=== PATIENT | male | born 1960 | race Caucasian/White ===

== ENCOUNTER 2018-03-21 19:50 | Emergency (ER) | payer BC ==
[2018-03-21 21:34] VITALS: BP 142/74
--- NOTE | 2018-03-21 22:32 | EDM.PDOC ---
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(s) - Related Data Allergies Allergy/AdvReac Type Severity Reaction Status Date / Time No Known Allergies Allergy Verified 03/21/18 21:34 Home Meds: Home Meds Escitalopram Oxalate 10 mg PO DAILY 03/31/16 [History] Levothyroxine Sodium 150 mcg PO DAILY 03/31/16 [History] Potassium Citrate 20 meq PO DAILY 03/31/16 [History] Rosuvastatin Calcium [Crestor] 10 mg PO DAILY 03/31/16 [History] Past Medical History HEENT History: Reports: Hard of Hearing Cardiovascular History: Reports: High Cholesterol Genitourinary History: Reports: Renal Calculus Psychiatric History: Reports: Anxiety Endocrine/Metabolic History: Reports: Hyperthyroidism - Past Surgical History GI Surgical History: Reports: Hernia Repair/Other Social & Family History - Tobacco Use Smoking Status *Q: Unknown Ever Smoked - Caffeine Use Caffeine Use: Reports: Coffee - Recreational Drug Use Recreational Drug Use: No Review of Systems - Review of Systems Review Of Systems: ROS reveals no pertinent complaints other than HPI. ED EXAM, GENERAL - Physical Exam Exam: See Below Exam Limited By: No Limitations General Appearance: Alert, No Apparent Distress Eye Exam: Bilateral Eye: EOMI Ears: Normal External Exam Nose: Normal Inspection Throat/Mouth: Normal Inspection Head: Atraumatic, Normocephalic Neck: Normal Inspection Respiratory/Chest: No Respiratory Distress, Lungs Clear Cardiovascular: Normal Peripheral Pulses, Regular Rate, Rhythm GI/Abdominal: Normal Bowel Sounds Extremities: Normal Range of Motion, Leg Pain (left anterior hogan tender) Neurological: Alert, Oriented, Normal Cognition Skin Exam: Wound/Incision (7x2 cm scrape to left anterior hogan. scant surrounding erythems. Upper mid portion dark crust, lower small amount white green drainage. ) Course - Vital Signs Last Recorded V/S: Last Vital Signs Temp 98.2 F 03/21/18 21:33 Pulse 54 L 06/27/18 21:33 Resp 18 03/21/18 21:33 BP 142/74 H 03/21/18 21:33 Pulse Ox 94 L 03/21/18 21:33 - Orders/Labs/Meds Orders: Active Orders 24 hr Category Date Time Status CULTURE BLOOD [BC] Stat Lab 03/21/18 22:41 Results CULTURE BLOOD [BC] Stat Lab 03/21/18 22:46 Received CULTURE WOUND [RM] Stat Lab 03/21/18 22:41 Ordered Blood Culture x2 Reflex Set [OM.PC] Stat Oth 03/21/18 22:18 Ordered Labs: Laboratory Tests 03/21/18 03/21/18 03/21/18 Range/Units 22:41 22:41 22:41 WBC 8.8 (5.0-10.0) 10^3/uL RBC 4.48 L (4.6-6.2) 10^6/uL Hgb 14.8 (14.0-18.0) g/dL Hct 42.4 (40.0-54.0) % MCV 94.6 (80-100) fL MCH 33.0 (27.0-34.0) pg MCHC 34.9 (33.0-35.0) g/dL Plt Count 176 (150-450) 10^3/uL Neut % (Auto) 58.0 (42.2-75.2) % Lymph % (Auto) 31.1 (20.5-50.1) % [place] % (Auto) 8.7 H (2-8) % Eos % (Auto) 1.9 (1.0-3.0) % Baso % (Auto) 0.3 (0.0-1.0) % Sodium 134 L (135-145) mmol/L Potassium 4.5 (3.6-5.0) mmol/L Chloride 102 (101-111) mmol/L Carbon Dioxide 24.0 (21.0-31.0) mmol/L Anion Gap 12.5 BUN 14 (7-18) mg/dL Creatinine 1.0 (0.6-1.3) mg/dL Est Cr Clr Drug Dosing 93.22 mL/min Estimated GFR (MDRD) > 60 BUN/Creatinine Ratio 14.00 Glucose 77 (74-105) mg/dL Lactic Acid 1.6 (0.5-2.2) mmol/L Calcium 8.5 (8.4-10.2) mg/dl Total Bilirubin 2.3 H (0.2-1.0) mg/dL AST 33 (10-42) IU/L ALT 26 (10-60) IU/L Alkaline Phosphatase 53 (42-121) IU/L Total Protein 6.8 (6.7-8.2) g/dl Albumin 4.1 (3.2-5.5) g/dl Globulin 2.7 Albumin/Globulin Ratio 1.52 Meds: Medications Discontinued Medications Generic Name Dose Route Start Last Admin Trade Name Steveq PRN Reason Stop Dose Admin Cephalexin 500 mg 03/21/18 23:26 03/21/18 23:33 Keflex PO 03/21/18 23:27 500 mg ONETIME ONE Administration Trimethoprim/Sulfamethoxazole 1 tab 03/21/18 23:26 03/21/18 23:33 Septra Ds PO 03/21/18 23:27 1 tab ONETIME ONE Administration Departure - Departure Time of Disposition: 23:24 Disposition: Home, Self-Care 01 Condition: Good Clinical Impression: Abrasion of anterior left lower leg Qualifiers: Encounter type: initial encounter Qualified Code(s): S80.812A - Abrasion, left lower leg, initial encounter Infected abrasion of left leg Qualifiers: Encounter type: initial encounter Qualified Code(s): S80.812A - Abrasion, left lower leg, initial encounter; L08.9 - Local infection of the skin and subcutaneous tissue, unspecified - Discharge Information Instructions: Wound Care, Adult Referrals: PCP,None [Primary Care Provider] - Forms: ED Department Discharge Additional Instructions: Follow up in clinic , Monday at latest Keflex 500mg one three times daily Bactrim DS one twice daily Wash with soap and water cover with dressing Urgent follow up if increased swelling redness or fever - My Orders Last 24 Hours: My Active Orders 03/21/18 22:18 Blood Culture x2 Reflex Set [OM.PC] Stat 03/21/18 22:41 CULTURE BLOOD [BC] Stat CULTURE WOUND [RM] Stat 03/21/18 22:46 CULTURE BLOOD [BC] Stat - Assessment/Plan Last 24 Hours: My Active Orders 03/21/18 22:18 Blood Culture x2 Reflex Set [OM.PC] Stat 03/21/18 22:41 CULTURE BLOOD [BC] Stat CULTURE WOUND [RM] Stat 03/21/18 22:46 CULTURE BLOOD [BC] Stat
[2018-03-21 23:18] LABS: CHLORIDE,CL 102 mmol/L (101-111); SODIUM,NA 134 mmol/L (135-145)
[2018-03-21] MEDS ORDERED: Sulfamethoxazole/Trimethoprim 800-160 MG Tab PO ONE (23:26)
[2018-03-21] MEDS ORDERED: Cephalexin 500 MG Cap PO ONE (23:26)
== END 2018-03-21 23:46 | disposition home or self-care (01) ==
LOC: DL.ED 19:50
DX: S80.812A Abrasion, left lower leg, initial encounter (principal); L08.9 Local infection of the skin and subcutaneous tissue, unspecified; E78.00 Pure hypercholesterolemia, unspecified; E05.90 Thyrotoxicosis, unspecified without thyrotoxic crisis or storm; Z79.899 Other long term (current) drug therapy; W01.0XXA Fall on same level from slipping, tripping and stumbling without subsequent striking against object, initial encounter
CPT/HCPCS: 36415; 73590; 80053; 83605; 85025; 87040; 87070; 99283; A9270; 87077; 87186

== ENCOUNTER 2018-03-30 21:04 | Emergency (ER) | payer BC ==
[2018-03-30 21:17] VITALS: BP 124/68
--- NOTE | 2018-03-30 22:51 | EDM.PDOC ---
ED HPI GENERAL MEDICAL PROBLEM - General Chief Complaint: Allergic Reaction Stated Complaint: [id number] SWITCHED ANTIBIOTICS Time Seen by Provider: 03/30/18 22:34 Source of Information: Reports: Patient, Family, RN, RN Notes Reviewed History Limitations: Reports: No Limitations - History of Present Illness INITIAL COMMENTS - FREE TEXT/NARRATIVE: Pt to Er with c/o rash to hands and left ankle, as well has swelling to the hands bilaterally and the left ankle. Patient states he fell off a dock and cut his left hogan. He was started on Keflex. He was told that the wound culture showed an organism that was not susceptible to Keflex and was then started on Cipro and told to continue taking the Keflex. Patient states he was told to not be in the sun much either, but he was fishing. He states he wore long sleeves, ankles and hands exposed to sunlight. Patient admits to taking benadryl about 3 hours prior to arrival. Admits to itching to the left ankle. Onset: Gradual - Related Data Allergies Allergy/AdvReac Type Severity Reaction Status Date / Time No Known Allergies Allergy Verified 03/30/18 21:17 Home Meds: Home Meds Escitalopram Oxalate 10 mg PO DAILY 03/31/16 [History] Levothyroxine Sodium 150 mcg PO DAILY 03/31/16 [History] Potassium Citrate 20 meq PO DAILY 03/31/16 [History] Rosuvastatin Calcium [Crestor] 10 mg PO DAILY 03/31/16 [History] Cephalexin [Keflex] 500 mg PO Q8H 03/30/18 [History] Ciprofloxacin [Cipro XR 500 MG Tablet] 500 mg PO BID 03/30/18 [History] Past Medical History HEENT History: Reports: Hard of Hearing Cardiovascular History: Reports: High Cholesterol Genitourinary History: Reports: Renal Calculus Psychiatric History: Reports: Anxiety Endocrine/Metabolic History: Reports: Hyperthyroidism - Past Surgical History GI Surgical History: Reports: Hernia Repair/Other Social & Family History - Tobacco Use Smoking Status *Q: Never Smoker Second Hand Smoke Exposure: No - Caffeine Use Caffeine Use: Reports: Coffee - Recreational Drug Use Recreational Drug Use: No ED ROS ALLERGIC REACTION - Review of Systems Review Of Systems: ROS reveals no pertinent complaints other than HPI. ED EXAM GENERAL NO PERIP PULSE - Physical Exam Exam: See Below Exam Limited By: No Limitations General Appearance: Alert, WD/WN, No Apparent Distress Eye Exam: Bilateral Eye: EOMI, Normal Inspection Ears: Normal External Exam, Hearing Grossly Normal Nose: Normal Inspection Throat/Mouth: Normal Inspection, Normal Voice, No Airway Compromise Head: Atraumatic, Normocephalic Neck: Normal Inspection, Supple, Non-Tender, Full Range of Motion Respiratory/Chest: No Respiratory Distress, Lungs Clear, Normal Breath Sounds, No Accessory Muscle Use, Chest Non-Tender Cardiovascular: Normal Peripheral Pulses, Regular Rate, Rhythm, No Edema, No Gallop, No JVD, No Murmur, No Rub GI/Abdominal: Normal Bowel Sounds, Soft, Non-Tender (Male) Exam: Deferred Rectal (Males) Exam: Deferred Back Exam: Normal Inspection, Full Range of Motion, NT Extremities: Joint Swelling (left ankle, joints of fingers and hands bilaterally ), Limited Range of Motion (left ankle) Neurological: Alert, Oriented, Normal Gait Psychiatric: Normal Affect, Normal Mood Skin Exam: Warm, Dry. No: No Rash (erythematous rash of very small papules to the hands and left ankle. Patient reports itchy) Lymphatic: No Adenopathy Course - Vital Signs Last Recorded V/S: Last Vital Signs Temp 98.6 F 03/30/18 21:12 Pulse 75 03/30/18 21:12 Resp 18 03/30/18 21:12 BP 124/68 03/30/18 21:12 Pulse Ox 96 03/30/18 21:12 - Re-Assessments/Exams Free Text/Narrative Re-Assessment/Exam: 03/31/18 05:52 Discussed with the patient that these could be drug reaction from the Cipro. He was instructed to stop both the Keflex and the Cipro. He was told to begin the Bactrim tomorrow. Told the pt that the wound culture was reviewed and Bactrim will cover the organism. Patient instructed to elevate the legs/feet to reduce the swelling, and to continue to take benadryl as directed. Departure - Departure Time of Disposition: 22:53 Disposition: Home, Self-Care 01 Condition: Fair Clinical Impression: Abrasion of anterior left lower leg Qualifiers: Encounter type: initial encounter Qualified Code(s): S80.812A - Abrasion, left lower leg, initial encounter Drug reaction Qualifiers: Encounter type: initial encounter Qualified Code(s): T50.905A - Adverse effect of unspecified drugs, medicaments and biological substances, initial encounter - Discharge Information Instructions: Drug Allergy, [id number], Wound Care, Adult Referrals: Pedrito Marie MD [Primary Care Provider] - Forms: ED Department Discharge Additional Instructions: Stop taking both Keflex and Cipro Begin taking Bactrim DS tomorrow Stay out of the sun Return to the ER with any further problems such as swelling to the tongue, face , neck, difficulty breathing Follow up with your primary care facility on Monday
== END 2018-03-30 23:07 | disposition home or self-care (01) ==
LOC: DL.ED 21:04
DX: S80.812A Abrasion, left lower leg, initial encounter (principal); L23.3 Allergic contact dermatitis due to drugs in contact with skin; T36.1X5A Adverse effect of cephalosporins and other beta-lactam antibiotics, initial encounter; E78.00 Pure hypercholesterolemia, unspecified; E05.90 Thyrotoxicosis, unspecified without thyrotoxic crisis or storm; Z79.899 Other long term (current) drug therapy; W17.4XXA Fall from dock, initial encounter
CPT/HCPCS: 99283

== ENCOUNTER 2018-03-31 16:05 | Emergency (ER) | payer BC ==
--- NOTE | 2018-03-31 16:36 | EDM.PDOC ---
ED HPI GENERAL MEDICAL PROBLEM - General Chief Complaint: Allergic Reaction Stated Complaint: REACTION TO ANTIBIOTIC Time Seen by Provider: 03/31/18 16:55 Source of Information: Reports: Patient, Family, Old Records, RN, RN Notes Reviewed History Limitations: Reports: No Limitations - History of Present Illness INITIAL COMMENTS - FREE TEXT/NARRATIVE: Pt [place] about 10 [place] 11 days ago which became infected. His doctor started him on cephalexin and sent off a wound culture. After about 7 days of cephalexin, he states he was contacted and had cipro added to the treatment. Yesterday he was seen here in the ER with redness and itching on sun exposed areas of skin and was instructed to d/c cephalexin and cipro by Josh CERVANTES, and was prescribed Bactrim DS. This morning pt took one tablet of bactrim and several hours later broke out in a generalized itchy rash of tiny red bumps and patches of "hives". Pt denies any swelling of the lips, mouth, tongue, or throat, or any wheezing or breathing difficulty. Onset: Today Duration: Constant Location: Reports: Generalized Quality: Reports: Other (denies pain) Severity: Severe Improves with: Reports: None Worsens with: Reports: None Associated Symptoms: Reports: No Other Symptoms - Related Data Allergies Allergy/AdvReac Type Severity Reaction Status Date / Time No Known Allergies Allergy Verified 03/30/18 21:17 Home Meds: Home Meds Escitalopram Oxalate 10 mg PO DAILY 03/31/16 [History] Levothyroxine Sodium 150 mcg PO DAILY 03/31/16 [History] Potassium Citrate 20 meq PO DAILY 03/31/16 [History] Rosuvastatin Calcium [Crestor] 10 mg PO DAILY 03/31/16 [History] Cephalexin [Keflex] 500 mg PO Q8H 03/30/18 [History] Ciprofloxacin [Cipro XR 500 MG Tablet] 500 mg PO BID 03/30/18 [History] Past Medical History HEENT History: Reports: Hard of Hearing Cardiovascular History: Reports: High Cholesterol Genitourinary History: Reports: Renal Calculus Psychiatric History: Reports: Anxiety Endocrine/Metabolic History: Reports: Hyperthyroidism - Past Surgical History GI Surgical History: Reports: Hernia Repair/Other Social & Family History - Family History Family Medical History: Noncontributory - Caffeine Use Caffeine Use: Reports: Coffee - Living Situation & Occupation Living situation: Reports: , with Spouse Occupation: Employed ED ROS ALLERGIC REACTION - Review of Systems Review Of Systems: ROS reveals no pertinent complaints other than HPI. ED EXAM GENERAL NO PERIP PULSE - Physical Exam Exam: See Below Exam Limited By: No Limitations General Appearance: Alert, WD/WN, No Apparent Distress Eye Exam: Bilateral Eye: Normal Inspection Ears: Normal External Exam, Hearing Grossly Normal Nose: Normal Inspection, Normal Mucosa, No Blood Throat/Mouth: Normal Inspection, Normal Lips, Normal Teeth, Normal Gums, Normal Oropharynx, Normal Voice, No Airway Compromise Head: Atraumatic, Normocephalic Neck: Normal Inspection, Supple, Non-Tender, Full Range of Motion Respiratory/Chest: No Respiratory Distress, Lungs Clear, Normal Breath Sounds, No Accessory Muscle Use, Chest Non-Tender Cardiovascular: Normal Peripheral Pulses, Regular Rate, Rhythm, No Edema, No Gallop, No JVD, No Murmur, No Rub GI/Abdominal: Normal Bowel Sounds, Soft, Non-Tender, No Distention (Male) Exam: Deferred Rectal (Males) Exam: Deferred Back Exam: Normal Inspection Extremities: Normal Range of Motion, Non-Tender, No Pedal Edema, Normal Capillary Refill Neurological: Alert, Oriented, CN II-XII Intact, Normal Cognition, Normal Gait, No Motor/Sensory Deficits Psychiatric: Normal Affect, Normal Mood Skin Exam: Warm, Dry, Rash (generalized urticarial rash, with tiny rough red bumps on arms), Wound/Incision (left anterior lower leg with healing subacute abrasion without any erythema or signs of infection.) Course - Orders/Labs/Meds Orders: Active Orders 24 hr Category Date Time Status Peripheral IV Care [RC] . DIRECTED Care 03/31/18 16:44 Active Sodium Chloride 0.9% [Normal Saline] 1,000 ml Med 03/31/18 16:44 Active IV .BOLUS Sodium Chloride 0.9% [Saline Flush] Med 03/31/18 16:44 Active 10 ml FLUSH ASDIRECTED PRN Peripheral IV Insertion Adult [OM.PC] Stat Oth 03/31/18 16:44 Ordered Medication Orders Sodium Chloride (Normal Saline) 1,000 mls @ 999 mls/hr IV .BOLUS ONE Stop: 03/31/18 17:44 Last Admin: 07/07/18 17:07 Dose: 999 mls/hr Sodium Chloride (Saline Flush) 10 ml FLUSH ASDIRECTED PRN PRN Reason: Keep Vein Open Meds: Medications Generic Name Dose Route Start Last Admin Trade Name Fremina PRN Reason Stop Dose Admin Sodium Chloride 1,000 mls @ 999 mls/hr 03/31/18 16:44 03/31/18 17:07 Normal Saline IV 03/31/18 17:44 999 mls/hr .BOLUS ONE Administration Sodium Chloride 10 ml 03/31/18 16:44 Saline Flush FLUSH ASDIRECTED PRN Keep Vein Open Discontinued Medications Generic Name Dose Route Start Last Admin Trade Name Freq PRN Reason Stop Dose Admin Diphenhydramine HCl 25 mg 03/31/18 16:44 Benadryl IVPUSH 03/31/18 16:45 ONETIME ONE Famotidine 20 mg 03/31/18 16:44 03/31/18 17:05 Pepcid IVPUSH 03/31/18 16:45 20 mg ONETIME ONE Administration Methylprednisolone Sodium Succinate 125 mg 03/31/18 16:44 03/31/18 17:05 Solu-Medrol IVPUSH 03/31/18 16:45 125 mg ONETIME ONE Administration - Re-Assessments/Exams Free Text/Narrative Re-Assessment/Exam: 03/31/18 17:43 Pt reports the itching has been relieved following tx in the ER. I find no signs of upper airway or respiratory involvement with the allergic reaction. The leg wound does not appear to need any further antibiotic treatment. Departure - Departure Time of Disposition: 17:44 Disposition: Home, Self-Care 01 Condition: Good Clinical Impression: Allergic drug rash due to anti-infective agent, Urticaria due to drug allergy - Discharge Information Instructions: Hives, [id number], Drug Allergy Forms: ED Department Discharge Additional Instructions: Stop all antibiotics. Take over the counter Benadryl (Diphenhydramine) 25mg: One or two tablets by mouth every 6 hours until rash, redness, and itching completely resolve. Rx: Prednisone 20mg: Take 3 tablets by mouth once a day with a meal for 5 days. Follow up in clinic with Dr. Marie or one of his associates in 2 to 3 days. Return to ER if worse at any time. - My Orders Last 24 Hours: My Active Orders 03/31/18 16:44 Peripheral IV Care [RC] . DIRECTED Sodium Chloride 0.9% [Normal Saline] 1,000 ml IV .BOLUS Sodium Chloride 0.9% [Saline Flush] 10 ml FLUSH ASDIRECTED PRN Peripheral IV Insertion Adult [OM.PC] Stat - Assessment/Plan Last 24 Hours: My Active Orders 03/31/18 16:44 Peripheral IV Care [RC] . DIRECTED Sodium Chloride 0.9% [Normal Saline] 1,000 ml IV .BOLUS Sodium Chloride 0.9% [Saline Flush] 10 ml FLUSH ASDIRECTED PRN Peripheral IV Insertion Adult [OM.PC] Stat
[2018-03-31] MEDS ORDERED: Sodium Chloride 0.9% 1,000 ML IV ONE (16:44)
[2018-03-31] MEDS ORDERED: methylPREDNISolone Sodium Succinate 125 MG/2 ML SDV IVPUSH ONE (16:44)
[2018-03-31] MEDS ORDERED: Sodium Chloride 0.9% 10 ML Syringe FLUSH PRN (16:44)
[2018-03-31] MEDS ORDERED: Famotidine 20 MG/2 ML SDV IVPUSH ONE (16:44)
[2018-03-31] MEDS: diphenhydrAMINE 50 MG/ML SDV IVPUSH ONE ×2 (17:04→17:07)
[2018-03-31 17:52] VITALS: BP 157/93
== END 2018-03-31 18:27 | disposition home or self-care (01) ==
LOC: DL.ED 16:05
DX: L50.0 Allergic urticaria (principal); T36.1X5A Adverse effect of cephalosporins and other beta-lactam antibiotics, initial encounter; Z79.899 Other long term (current) drug therapy
CPT/HCPCS: 96374; 96375; 99283; J2930; J7030; J1200; S0028

== ENCOUNTER 2021-06-04 10:51 | Emergency (ER) | payer BC ==
[2021-06-04] MEDS ORDERED: Sodium Chloride 0.9% 10 ML Syringe FLUSH PRN (11:11)
[2021-06-04 11:12] VITALS: BP 139/87; PULSE 51
[2021-06-04] MEDS ORDERED: Ondansetron 4 MG/2 ML SDV IV ONE (11:12)
[2021-06-04] MEDS ORDERED: Ketorolac 30 MG/ML SDV IVPUSH ONE (11:12)
[2021-06-04] MEDS ORDERED: Tamsulosin 0.4 MG Cap.ER PO ONE (11:12)
[2021-06-04] MEDS ORDERED: Sodium Chloride 0.9% 1,000 ML IV ONE (11:33)
[2021-06-04 11:45] LABS: ANION GAP 11.5 mEq/L (7-13); CHLORIDE,CL 106 mmol/L (98-107); SODIUM,NA 140 mmol/L (136-145)
[2021-06-04 11:56] LABS: PTT,PARTIAL THROMBOPLSTIN TIME 23.5 SEC (22.0-34.0)
--- NOTE | 2021-06-04 12:16 | EDM.PDOC ---
<Adan Quintana - Last Filed: 06/04/21 14:25> ED HPI GENERAL MEDICAL PROBLEM - General Chief Complaint: Genitourinary Problem Stated Complaint: PASSING KIDNEY STONE Time Seen by Provider: 06/04/21 11:40 - Related Data Allergies Allergy/AdvReac Type Severity Reaction Status Date / Time No Known Allergies Allergy Verified 03/30/18 21:17 Home Meds: Home Meds Escitalopram Oxalate 10 mg PO DAILY 03/31/16 [History] Levothyroxine Sodium 150 mcg PO DAILY 03/31/16 [History] Potassium Citrate 20 meq PO DAILY 03/31/16 [History] Rosuvastatin Calcium [Crestor] 10 mg PO DAILY 03/31/16 [History] Ciprofloxacin [Cipro XR 500 MG Tablet] 500 mg PO BID 03/30/18 [History] cephALEXin [Keflex] 500 mg PO Q8H 03/30/18 [History] Departure - Departure Time of Disposition: 14:25 Disposition: Home, Self-Care 01 Condition: Good Clinical Impression: Urinary retention, Vasovagal syncope, Cerebral microvascular disease - Discharge Information *PRESCRIPTION DRUG MONITORING PROGRAM REVIEWED*: Not Applicable *COPY OF PRESCRIPTION DRUG MONITORING REPORT IN PATIENT JUJU: Not Applicable Instructions: Acute Urinary Retention, Male, Syncope, [id number] Forms: ED Department Discharge Additional Instructions: Rx: Flomax 0.4mg Once capsule by mouth daily. Follow up in clinic for further evaluation of urinary retention/bladder distention, and cerebral microvascular disease/stroke risk reduction. <Won Salinas - Last Filed: 06/04/21 17:39> ED HPI GENERAL MEDICAL PROBLEM - General Source of Information: Reports: Patient History Limitations: Reports: No Limitations - History of Present Illness INITIAL COMMENTS - FREE TEXT/NARRATIVE: 60 y/o M Pt complains of R flank pain for the past week. Pt states the pain has moved to his right lower quadrant. The pain is sharp in nature, constant, non radiating. Pt denies blood in his urine. Pt has a hx of kidney stones and has previously had to have them broken up in order for them to pass. Pt states he is on potassium to prevent further stones. He denies fever, cough, chills, cp, db, pelvic pn, recent trauma, drugs, etoh. Onset: Gradual Duration: Day(s): Location: Reports: Abdomen Quality: Reports: Sharp Severity: Moderate Improves with: Reports: None Worsens with: Reports: None Right Abdomen Pain Score (Numeric/FACES): 5 Past Medical History HEENT History: Reports: Hard of Hearing Cardiovascular History: Reports: High Cholesterol Respiratory History: Reports: None Gastrointestinal History: Reports: None Genitourinary History: Reports: Renal Calculus Musculoskeletal History: Reports: None Neurological History: Reports: None Psychiatric History: Reports: Anxiety Endocrine/Metabolic History: Reports: Hyperthyroidism Hematologic History: Reports: None Immunologic History: Reports: None Oncologic (Cancer) History: Reports: None Dermatologic History: Reports: None - Infectious Disease History Infectious Disease History: Reports: None - Past Surgical History Head Surgeries/Procedures: Reports: None GI Surgical History: Reports: Hernia Repair/Other Social & Family History - Family History Family Medical History: No Pertinent Family History - Tobacco Use Tobacco Use Status *Q: Never Tobacco User - Caffeine Use Caffeine Use: Reports: Coffee - Recreational Drug Use Recreational Drug Use: No - Living Situation & Occupation Living situation: Reports: , with Spouse Occupation: Employed ED ROS GENERAL - Review of Systems Review Of Systems: Comprehensive ROS is negative, except as noted in HPI. ED EXAM, GI/ABD - Physical Exam Exam: See Below Exam Limited By: No Limitations General Appearance: Alert, No Apparent Distress Throat/Mouth: Normal Inspection, Normal Lips, Normal Teeth, Normal Gums, Normal Oropharynx, Normal Voice, No Airway Compromise Head: Atraumatic, Normocephalic Neck: Normal Inspection, Supple, Non-Tender, Full Range of Motion Respiratory/Chest: No Respiratory Distress, Lungs Clear, Normal Breath Sounds, No Accessory Muscle Use, Chest Non-Tender Cardiovascular: Normal Peripheral Pulses, Regular Rate, Rhythm, No Edema, No Gallop, No JVD, No Murmur, No Rub GI/Abdominal Exam: Soft, Tender (tender R lower quad) (Male) Exam: Deferred Rectal (Males) Exam: Deferred Back Exam: Normal Inspection, Full Range of Motion Extremities: Normal Inspection, Normal Range of Motion, Non-Tender, Normal Capillary Refill, No Pedal Edema Neurological: Alert, Oriented, Normal Cognition Psychiatric: Normal Affect, Normal Mood Skin Exam: Warm, Dry, Intact #1 Interpretation EKG Date: 06/04/21 Time: 11:36 Rhythm: NSR [place]: Normal P-Wave: Present QRS: Normal ST-T: Normal QT: Normal Course - Vital Signs Last Recorded V/S: Last Vital Signs Temp 97.7 F 06/04/21 11:10 Pulse 51 L 06/04/21 11:10 Resp 18 06/04/21 11:10 BP 139/87 06/04/21 11:10 Pulse Ox 96 06/04/21 11:30 - Orders/Labs/Meds Orders: Active Orders 24 hr Category Date Time Status Peripheral IV Insertion Adult [OM.PC] Stat Oth 06/04/21 11:11 Ordered Labs: Laboratory Tests 06/04/21 06/04/21 06/04/21 Range/Units 11:28 11:28 11:28 WBC 7.8 (5.0-10.0) 10^3/uL RBC 4.68 (4.6-6.2) 10^6/uL Hgb 15.5 (14.0-18.0) g/dL Hct 44.6 (40.0-54.0) % MCV 95.3 (80-100) fL MCH 33.1 (27.0-34.0) pg MCHC 34.8 (33.0-35.0) g/dL Plt Count 210 (150-450) 10^3/uL Neut % (Auto) 44.1 (42.2-75.2) % Lymph % (Auto) 46.5 (20.5-50.1) % [place] % (Auto) 6.9 (2-8) % Eos % (Auto) 2.2 (1.0-3.0) % Baso % (Auto) 0.3 (0.0-1.0) % PT 10.0 (9.0-12.0) SEC INR 1.0 (0.9-1.2) APTT 23.5 (22.0-34.0) SEC D-Dimer, Quantitative < 100 (0-400) ng/mL Sodium 140 (136-145) mmol/L Potassium 4.5 (3.5-5.1) mmol/L Chloride 106 (98-107) mmol/L Carbon Dioxide 27 (21-32) mmol/L Anion Gap 11.5 (7-13) mEq/L BUN 13 (7-18) mg/dL Creatinine 0.99 (0.70-1.30) mg/dL Est Cr Clr Drug Dosing 90.80 mL/min Estimated GFR (MDRD) > 60 Glucose 98 (70-99) mg/dL POC Glucose (70-99) mg/dL Calcium 8.3 L (8.5-10.1) mg/dL Magnesium (1.8-2.4) mg/dL Troponin I High Sens (<=76) pg/mL Urine Color (YELLOW) Urine Appearance (CLEAR) Urine pH (5.0-9.0) Ur Specific [place] (1.005-1.030) Urine Protein (NEGATIVE) Urine Glucose (UA) (NEGATIVE) Urine Ketones (NEGATIVE) Urine Occult Blood (NEGATIVE) Urine Nitrite (NEGATIVE) Urine Bilirubin (NEGATIVE) Urine Urobilinogen (0.2-1.0) mg/dL Ur Leukocyte Esterase (NEGATIVE) 06/04/21 06/04/21 06/04/21 Range/Units 11:28 11:39 13:46 WBC (5.0-10.0) 10^3/uL RBC (4.6-6.2) 10^6/uL Hgb (14.0-18.0) g/dL Hct (40.0-54.0) % MCV (80-100) fL MCH (27.0-34.0) pg MCHC (33.0-35.0) g/dL Plt Count (150-450) 10^3/uL Neut % (Auto) (42.2-75.2) % Lymph % (Auto) (20.5-50.1) % [place] % (Auto) (2-8) % Eos % (Auto) (1.0-3.0) % Baso % (Auto) (0.0-1.0) % PT (9.0-12.0) SEC INR (0.9-1.2) APTT (22.0-34.0) SEC D-Dimer, Quantitative (0-400) ng/mL Sodium (136-145) mmol/L Potassium (3.5-5.1) mmol/L Chloride (98-107) mmol/L Carbon Dioxide (21-32) mmol/L Anion Gap (7-13) mEq/L BUN (7-18) mg/dL Creatinine (0.70-1.30) mg/dL Est Cr Clr Drug Dosing mL/min Estimated GFR (MDRD) Glucose (70-99) mg/dL POC Glucose 112 H (70-99) mg/dL Calcium (8.5-10.1) mg/dL Magnesium 2.0 (1.8-2.4) mg/dL Troponin I High Sens 6 (<=76) pg/mL Urine Color Yellow (YELLOW) Urine Appearance Clear (CLEAR) Urine pH 5.5 (5.0-9.0) Ur Specific [place] 1.020 (1.005-1.030) Urine Protein Negative (NEGATIVE) Urine Glucose (UA) Negative (NEGATIVE) Urine Ketones Negative (NEGATIVE) Urine Occult Blood Negative (NEGATIVE) Urine Nitrite Negative (NEGATIVE) Urine Bilirubin Negative (NEGATIVE) Urine Urobilinogen 0.2 (0.2-1.0) mg/dL Ur Leukocyte Esterase Negative (NEGATIVE) Meds: Medications Discontinued Medications Generic Name Dose Route Start Last Admin Trade Name Freq PRN Reason Stop Dose Admin Sodium Chloride 1,000 mls @ 999 mls/hr 06/04/21 11:33 06/04/21 11:50 Normal Saline IV 06/04/21 12:33 999 mls/hr .BOLUS ONE Administration Ketorolac Tromethamine 30 mg 06/04/21 11:12 06/04/21 11:51 Ketorolac 30 Mg/Ml Sdv IVPUSH 06/04/21 11:13 30 mg ONETIME ONE Administration Ondansetron HCl 4 mg 06/04/21 11:12 06/04/21 11:53 Ondansetron 4 Mg/2 Ml Sdv IV 06/04/21 11:13 4 mg ONETIME ONE Administration Sodium Chloride 10 ml 06/04/21 11:11 06/04/21 12:05 Sodium Chloride 0.9% 10 Ml Syringe FLUSH 10 ml ASDIRECTED PRN Administration Keep Vein Open Tamsulosin HCl 0.4 mg 06/04/21 11:12 06/04/21 12:12 Tamsulosin 0.4 Mg Cap.Er PO 06/04/21 11:13 0.4 mg ONETIME ONE Administration - Re-Assessments/Exams Free Text/Narrative Re-Assessment/Exam: 06/04/21 17:30 While nurse was preparing to start an IV on pt he had a near syncopal episode and became diaphoretic, bradycardic and weak. Pt was moved to room 1 in case of deterioration. After 15 min pts condition improved without intervention. Pt reports he has passed out before because of needles. He reports no increase in pain. No cp, db, [place]. 06/04/21 17:32 Discussed labs, ekg, scans and exam with pt. Informed pt that no kidney stones or abd abnormalities other than a large bladder were noted on the CT. Informed pt about the microvascular changes indicated on his head ct and instructed him to follow up with his pcp about the results of the head CT. Pt voided 700mls without difficulty abd bladder scan indicated 70ml residual in bladder after voiding. Unknown of the accuracy of the bladder scan. Unknown if pt is experiencing urinary retention which may contribute to the cause of hsi abd pn. Pts reports pts PSA has been elevated as of late. We will discharge the pt with an Rx for Flomax to treat urinary retention. A Sepsis Event Note (ED) - Evaluation Sepsis Screening Result: No Definite Risk - Focused Exam Vital Signs: Vital Signs Temp Pulse Resp BP Pulse Ox 06/04/21 11:30 96 06/04/21 11:10 97.7 F 51 L 18 139/87 95
--- NOTE | 2021-06-04 13:01 | CT ---
EXAMINATION: Head wo Cont SEX: Male AGE: 60 years CLINICAL HISTORY: 60-year-old male in the emergency department with flank pain, syncopal episode, and seizure. Scan technique: Volume acquisition of data emergency unenhanced CT scan of the head and brain obtained with patient lying supine on the Siemens multislice scanner [place], [place]. All data archived in the PACS system for storage, reformatting axial/sagittal/coronal planes and study (bone/brain windows). Interpretation: ABNORMAL. 1. *Multiple scattered areas of decreased attenuation throughout the periventricular white matter of both cerebral hemispheres without edema or mass effect on the adjacent sulci or underlying ventricular system i.e. 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 Hypertension? Diabetes? Smoker? Doubt metastatic disease. 2. No supratentorial or posterior fossa mass lesion. Subtle decreased attenuation brainstem and recommend considering follow-up unenhanced MRI. 3. No sign of acute intracerebral, intraventricular or subarachnoid hemorrhage. 4. No abnormal extracerebral/intracranial epidural or subdural hematoma. 5. Uniformly thick bony calvarium. Symmetric clear pneumatization of the paranasal and mastoid sinuses.
--- NOTE | 2021-06-04 13:01 | CR ---
EXAMINATION: Chest 1V Frontal SEX: Male AGE: 60 years CLINICAL HISTORY: 60-year-old male syncopal episode and seizure. No comparison CXR immediately available this institution. Interpretation: No acute cardiopulmonary abnormality. Normal cardiac silhouette (size and configuration). External teletypesetter monitor leads. No pulmonary vascular congestion, cephalization of flow, alveolar edema or dependent pleural effusion. No lung mass or hilar/mediastinal lymphadenopathy. Normal midline tracheal bronchial airway. No alveolar consolidation/infiltrates, air bronchograms, or peripheral "groundglass" interstitial lung densities. No pneumothorax or pneumomediastinum. No free subdiaphragmatic air.
--- NOTE | 2021-06-04 13:05 | CT ---
EXAMINATION: Abdomen Pelvis wo Cont SEX: Male AGE: 60 years CLINICAL HISTORY: 60-year-old male with right flank pain radiating to the right lower quadrant of the abdomen limits syncopal episode and seizure in the emergency department. Scan technique: Volume acquisition of data emergency unenhanced CT scan of the abdomen and pelvis (kidneys/ureters/bladder) while patient was lying supine on the Siemens multislice scanner [place], [place]. All data archived PACS system for storage, reformatting axial/sagittal/coronal planes and study. Interpretation: 1. Unenhanced urinary bladder markedly distended, midline pelvis, with the dome approaching the level of the umbilicus. 2. Symmetric normal reniform size, axis and configuration. No cystic or solid renal cortical mass lesion. 3. No sign of nephrolithiasis, ureterolithiasis, or obstructive uropathy i.e. pyelocaliectasis or ureterectasis. 4. No urinary bladder stones. Midline prostate gland calcifications. Symmetric seminal vesicles unremarkable. 5. Gallbladder, unenhanced liver, stomach, spleen, pancreas and adrenal glands unremarkable. 6. No pelvic or abdominal mass lesion. No inflammatory "dirty" peritoneal fat, signs of mechanical bowel obstruction, ascites or free intraperitoneal air. Normal terminal ileum and appendix (RLQ). Calcification within right psoas muscle. 7. Atheromatous calcifications at the bifurcation of the aortoiliac vessels. No aneurysm or dissection. 8. Exaggerated lumbar lordosis. Hypertrophic marginal spondylosis. No pathologic skeletal lesion, lumbar fracture or dislocation. CONCLUSION: Distended urinary bladder. Arteriovascular calcifications. Midline prostate calcifications. No sign of urolithiasis or obstructive uropathy. Normal appendix.
== END 2021-06-04 14:40 | disposition home or self-care (01) ==
LOC: DL.ED 10:51
DX: I67.9 Cerebrovascular disease, unspecified (principal); R33.9 Retention of urine, unspecified; R55 Syncope and collapse; E05.90 Thyrotoxicosis, unspecified without thyrotoxic crisis or storm; E78.00 Pure hypercholesterolemia, unspecified; Z79.899 Other long term (current) drug therapy
CPT/HCPCS: 36415; 70450; 71045; 74176; 80048; 81003; 82947; 83735; 84484; 85025; 85379; 85610; 85730; 93005; 96374; 96375; 99284; A9270; J1885; J2405; J7030

== ENCOUNTER 2021-10-18 06:00 | Day surgery (SDC) | payer BC ==
[~2021-10-18 06:00] MED LIST: Dextrose 5%-0.45% NaCl 1,000 ML IV SCH; Midazolam 1 MG/ML 2 ML SDV ONE; fentaNYL 100 MCG/2 ML SDV ONE
[2021-10-18] MEDS ORDERED: Midazolam 1 MG/ML 2 ML SDV IV ONE ×5 (06:01→07:26)
[2021-10-18] MEDS ORDERED: fentaNYL 100 MCG/2 ML SDV IV ONE ×3 (06:01→07:19)
[2021-10-18] MEDS ORDERED: Sodium Chloride 0.9% 10 ML Syringe FLUSH SCH (09:00)
[2021-10-18 09:21] VITALS: BP 128/69; PULSE 45
== END 2021-10-18 09:25 | disposition home or self-care (01) ==
LOC: DL.ENDO 06:00
PROVIDERS: ATTEND Internal Medicine Gastroenterology
DX: Z12.11 Encounter for screening for malignant neoplasm of colon (principal); K64.8 Other hemorrhoids; E66.09 Other obesity due to excess calories; N52.9 Male erectile dysfunction, unspecified; E78.00 Pure hypercholesterolemia, unspecified; F41.1 Generalized anxiety disorder; E03.9 Hypothyroidism, unspecified; Z86.010 Personal history of colon polyps; Z98.890 Other specified postprocedural states
CPT/HCPCS: 45378; J2250; J3010; J7042